=== PATIENT | male | born 1955 | race Caucasian/White ===

== ENCOUNTER 2019-09-20 07:26 | Observation (INO) | payer MEDICARE, MEDICAID ==
[2019-09-17 10:31] VITALS: BMI 32.4
[2019-09-20 09:05] LABS: #Basophils 0.1 thou/uL (0.0-0.2); #Eosinphils 0.3 thou/uL (0.0-0.7); #Lymphocytes 2.9 thou/uL (1.20-3.40); #Monocytes 0.7 thou/uL (0.11-0.59); #Neutrophils 11.7 thou/uL (1.40-6.50); %Basophils 0.6 % (0.0-1.0); %Eosinophils 1.9 % (0.0-10.0); %Lymphocytes 18.5 % (21.0-51.0); %Monocytes 4.1 % (0.0-10.0); %Neutrophils 74.8 % (42.0-75.0); Mean Corpuscular HGB CONC 32.9 g/dL (32.0-36.0); Mean Corpuscular Hemoglobin 31.2 pg (27.0-31.0); Mean Corpuscular Volume 94.9 fL (78.0-98.0); Mean Platelet Volume 6.1 fL (7.4-10.4); Platelet Count 408 thou/uL (130-400); RBC Distribution Width 13.1 % (11.5-14.5); Red Blood Cell (RBC) Count 5.45 mill/uL (4.70-6.10); White Blood Cell (WBC) Count 15.7 thou/uL (4.8-10.8)
[2019-09-20] MEDS ORDERED: Levofloxacin 500 mg/D5W 100 ml Premix Bag ONE (09:14)
[2019-09-20] MEDS ORDERED: Clindamycin/D5W 900 mg/50 ml Premix Bag ONE (09:15)
[2019-09-20 09:23] LABS: Anion Gap 13 mmol/L (10-20); BUN (Urea Nitrogen) 16 mg/dL (8.4-25.7); Calc. Creatinine Clearance 109 mL/min (70-130); Calcium 9.7 mg/dL (7.8-10.44); Carbon Dioxide 27 mmol/L (23-31); Chloride 103 mmol/L (98-107); Estimated GFR-MDRD 69; Glucose 155 mg/dL (80-115); Potassium 4.6 mmol/L (3.5-5.1); Sodium 138 mmol/L (136-145)
[2019-09-20] MEDS ORDERED: Ondansetron PF 4 MG/2 ML Vial ONE (09:37)
[2019-09-20] MEDS ORDERED: Rocuronium Bromide 10 MG/ML (10ML VIAL) ONE (09:37)
[2019-09-20] MEDS ORDERED: Lidocaine 1% PF 5 ML VIAL ONE (09:37)
[2019-09-20] MEDS ORDERED: PROPOFOL 200 MG/20 ML VIAL ONE (09:37)
[2019-09-20] MEDS ORDERED: Ketorolac Tromethamine 30 MG/ML VIAL ONE (09:37)
[2019-09-20] MEDS ORDERED: Dexamethasone 20 MG/5 ML VIAL ONE (09:37)
[2019-09-20] MEDS ORDERED: Glycopyrrolate 0.2 MG/ML 5 ML SYRINGE ONE (09:37)
[2019-09-20] MEDS ORDERED: Labetalol HCl 100 MG/20 ML VIAL ONE (09:37)
[2019-09-20] MEDS ORDERED: Fentanyl 100 MCG/2 ML VIAL ONE ×2 (10:34→12:28)
[2019-09-20] MEDS ORDERED: Midazolam HCl 2 mg/2 ml Vial ONE (10:34)
[2019-09-20] MEDS ORDERED: Promethazine HCl 25 MG/ML VIAL SLOW IVP PRN (11:29)
[2019-09-20] MEDS ORDERED: Ondansetron HCl/PF 4 MG/2 ML Vial IVP PRN (11:29)
[2019-09-20] MEDS ORDERED: Promethazine HCl 25 MG/ML VIAL IM PRN ×2 (11:29→13:04)
--- NOTE | 2019-09-20 12:41 | OP ---
DATE OF PROCEDURE: 09/20/2019 RECEPTION MANAGER: Kindra Ledezma PA-C. PROCEDURE PERFORMED: L1 through L4 decompressive laminectomy. DESCRIPTION OF PROCEDURE: The patient was brought to the operating room and intubated. He was rolled in a prone position on gel-filled chest rolls. An incision was made exposing L1 through L4 and the level was confirmed by x-ray. We performed complete L4, complete L3, complete L2, and inferior L1 laminectomies, completely decompressing the neural elements. The degree of stenosis was quite profound from the significant bony overgrowth throughout. A complete decompression was achieved. The wound was then extensively irrigated and MAC hemostasis was secured. Vancomycin powder was applied and the wound was closed in anatomic layers. Job ID: [id number]
[2019-09-20] MEDS ORDERED: Mag-Al 1200 mg/1200 mg/30 ML UDCUP PO PRN (13:04)
[2019-09-20] MEDS ORDERED: Milk Of Magnesia 30 ML UDCUP PO PRN (13:04)
[2019-09-20] MEDS ORDERED: Promethazine HCl 12.5 MG SUPP PR PRN (13:04)
[2019-09-20] MEDS ORDERED: Morphine 2 MG/ML SYRINGE SLOW IVP PRN (13:04)
[2019-09-20] MEDS ORDERED: diphenhydrAMINE 25 MG CAP PO PRN (13:04)
[2019-09-20] MEDS ORDERED: Promethazine 25 MG TAB PO PRN (13:04)
[2019-09-20] MEDS ORDERED: diphenhydrAMINE 50 MG/ML VIAL IVP PRN (13:04)
[2019-09-20] MEDS ORDERED: traMADol HCl 50 MG TAB PO PRN ×2 (13:04)
[2019-09-20] MEDS ORDERED: Morphine 4 MG/ML VIAL SLOW IVP PRN (13:04)
[2019-09-20] MEDS ORDERED: HYDROcodone/Acetaminophen 10/325 mg Tablet PO PRN (13:04)
[2019-09-20] MEDS ORDERED: Ondansetron PF 4 MG/2 ML Vial IM PRN (13:06)
[2019-09-20] MEDS: Clindamycin/D5W 900 MG in Premix Bag 1 BAG IVPB SCH (19:18)
[2019-09-20] MEDS: Sodium Chloride 0.9% 1,000 ML IV SCH (19:18)
[2019-09-20] MEDS: tiZANidine HCl 4 MG TAB PO PRN (23:06)
[2019-09-21] MEDS: Clindamycin/D5W 900 MG in Premix Bag 1 BAG IVPB SCH ×3 (02:48→17:21)
[2019-09-21] MEDS: HYDROcodone/Acetaminophen 10/325 mg Tablet PO PRN ×4 (02:49→20:01)
[2019-09-21] MEDS: Sodium Chloride 0.9% 1,000 ML IV SCH ×2 (02:55→16:32)
[2019-09-21] MEDS: Tamsulosin HCl 0.4 MG CAP PO SCH (05:16)
--- NOTE | 2019-09-21 06:24 | PRG ---
DATE OF SERVICE: 09/21/2019 SUBJECTIVE: The patient is now postoperative day 1, status post L1-L4 laminectomy for lumbar stenosis. Following the surgery, he was transitioned to the Med/Surg floor, where his pain has been well-controlled with p.o. medications, he is tolerating a regular diet, and he is voiding appropriately. He did have a ANN MARIE drain placed intraoperatively and had 130 mL out overnight. OBJECTIVE: VITAL SIGNS: His vital signs are stable and he has been afebrile. GENERAL: The patient is sitting up, awake, alert, in no acute distress. EXTREMITIES: He has free active range of motion of all extremities. No focal motor weakness. IMPRESSION AND PLAN: At this point, the patient is doing quite well since his surgery, he does have a slightly high ANN MARIE output and we will leave the ANN MARIE drain in place another day. Anticipate if it turns downward that it could be removed tomorrow and possible discharge home tomorrow. Job ID: [id number]
[2019-09-21] MEDS: Furosemide 40 MG TAB PO SCH (08:59)
[2019-09-21] MEDS: Hydrochlorothiazide 25 MG TAB PO SCH (08:59)
[2019-09-21] MEDS: tiZANidine HCl 4 MG TAB PO PRN ×2 (09:03→20:01)
--- NOTE | 2019-09-21 11:34 | EKG ---
Test Reason : PREOP Blood Pressure : / mmHG Vent. Rate : 077 BPM Atrial Rate : 077 BPM P-R Int : 190 ms QRS Dur : 080 ms QT Int : 396 ms P-R-T Axes : 028 076 027 degrees QTc Int : 448 ms Normal sinus rhythm Normal ECG No previous ECGs available Confirmed by RAYMOND ZHAO, DR. Crockett ([id number]) on 09/21/2019 11:34:36 AM Referred By: MONICA Confirmed By:DR. Keira ANDRADE MD
[2019-09-22] MEDS: Clindamycin/D5W 900 MG in Premix Bag 1 BAG IVPB SCH ×2 (01:18→08:59)
[2019-09-22] MEDS: HYDROcodone/Acetaminophen 10/325 mg Tablet PO PRN ×2 (01:19→08:59)
[2019-09-22] MEDS: Tamsulosin HCl 0.4 MG CAP PO SCH (06:03)
[2019-09-22] MEDS: Sodium Chloride 0.9% 1,000 ML IV SCH (07:22)
[2019-09-22 08:09] VITALS: BP 130/87; TEMP 98
[2019-09-22] MEDS: Furosemide 40 MG TAB PO SCH (08:59)
[2019-09-22] MEDS: Hydrochlorothiazide 25 MG TAB PO SCH (08:59)
--- NOTE | 2019-09-22 15:25 | DIS ---
DATE OF ADMISSION: 09/20/2019 DATE OF DISCHARGE: 09/22/2019 The patient is a 63-year-old male, who was recently evaluated in our office for low back pain and progressive neurogenic claudication. He was found to have significant stenosis from L1 through L4 on MRI. The patient underwent L1 through L4 laminectomy on 09/20/2019. Following the surgery, he was transitioned to the Med/Surg floor, where his pain has been well-controlled with p.o. medications, he is tolerating regular diet, and he is voiding appropriately. ANN MARIE output has trended down over the last 2 days and was only 70 mL out over postoperative night #2. We will plan to dismiss the patient to home and remove the ANN MARIE drain prior to discharge. I have discussed home care and precautions and will follow up with the patient in 2 weeks. [place] should be removed in 2 weeks. He has been provided with scripts for [place] and Zanaflex. I have checked [employer] prior to discharge and there were no script discrepancies. Job ID: [id number]
== END 2019-09-22 11:07 | disposition home or self-care (01) ==
LOC: SDC 07:26 → SURG A 14:16
PROVIDERS: ADMIT Neurological Surgery; ATTEND Neurological Surgery
PROC: 01NB0ZZ Release Lumbar Nerve, Open Approach (ICD-10-PCS; principal; 2019-09-20)
DX: M48.062 Spinal stenosis, lumbar region with neurogenic claudication (principal); I10 Essential (primary) hypertension; F17.200 Nicotine dependence, unspecified, uncomplicated; Z79.2 Long term (current) use of antibiotics; Z79.891 Long term (current) use of opiate analgesic; Z79.899 Other long term (current) drug therapy; Z88.0 Allergy status to penicillin; Z88.1 Allergy status to other antibiotic agents; Z88.2 Allergy status to sulfonamides; Z88.5 Allergy status to narcotic agent; Z91.048 Other nonmedicinal substance allergy status
CPT/HCPCS: 36415; 76000; 80048; 85025; 93005; 93010; 96365; 96366; 96376; G0378; J1100; J1885; J1956; J2001; J2250; J2405; J2704; J3010; J3370; J3490; J7620

== ENCOUNTER 2022-05-10 09:57 | Outpatient (CLI) | payer OTHER, MEDICAID | END 2022-05-10 09:58 | disposition home or self-care (01) | LOC: TBSIIMAG 09:57 | PROVIDERS: ATTEND Neurological Surgery | DX: M51.25 Other intervertebral disc displacement, thoracolumbar region (principal); M51.04 Intervertebral disc disorders with myelopathy, thoracic region; G95.89 Other specified diseases of spinal cord; M51.35 Other intervertebral disc degeneration, thoracolumbar region | CPT/HCPCS: 72146 ==

== ENCOUNTER 2022-07-22 06:55 | Inpatient (IN) | payer OTHER, MEDICAID ==
[2022-07-19 10:27] VITALS: BMI 31.6
[2022-07-22 08:43] LABS: #Eosinphils 0.3 thou/uL (0.0-0.7); #Monocytes 0.6 thou/uL (0.11-0.59); %Basophils 0.3 % (0.0-1.0); %Eosinophils 3.2 % (0.0-10.0); %Lymphocytes 27.3 % (21.0-51.0); %Monocytes 5.5 % (0.0-10.0); %Neutrophils 63.8 % (42.0-75.0); Hemoglobin 16.3 g/dL (14.0-18.0); Mean Corpuscular Hemoglobin 31.9 pg (27.0-31.0); Mean Corpuscular Volume 96.5 fl (78.0-98.0); Mean Platelet Volume 6.8 fL (7.4-10.4); Platelet Count 236 10x3/uL (130-400); Red Blood Cell (RBC) Count 5.12 mill/uL (4.70-6.10)
[2022-07-22 09:03] LABS: Anion Gap 14 mmol/L (10-20); BUN (Urea Nitrogen) 15 mg/dL (8.4-25.7); Calc. Creatinine Clearance 91 mL/min (70-130); Calcium 9.5 mg/dL (7.8-10.44); Carbon Dioxide 22 mmol/L (23-31); Chloride 105 mmol/L (98-107); Estimated GFR 66; Glucose 128 mg/dL (80-115); Potassium 4.2 mmol/L (3.5-5.1); Sodium 137 mmol/L (136-145)
[2022-07-22] MEDS ORDERED: fentaNYL PF 100 MCG/2 ML SYRINGE ONE (09:48)
[2022-07-22] MEDS ORDERED: Levofloxacin 500 mg/D5W 100 ml Premix Bag ONE (09:55)
[2022-07-22] MEDS ORDERED: Clindamycin/D5W 900 mg/50 ml Premix Bag ONE (09:56)
[2022-07-22] MEDS ORDERED: Ondansetron PF 4 MG/2 ML Vial ONE (10:05)
[2022-07-22] MEDS ORDERED: Lidocaine 1% PF 5 ML VIAL ONE (10:05)
[2022-07-22] MEDS ORDERED: Rocuronium Bromide 10 MG/ML (10ML VIAL) ONE (10:05)
[2022-07-22] MEDS ORDERED: PROPOFOL 200 MG/20 ML VIAL ONE (10:05)
[2022-07-22] MEDS ORDERED: NEOSTIGMINE 3 MG/3 ML SYR 3 MG/3 ML SYRINGE ONE (10:05)
[2022-07-22] MEDS ORDERED: Glycopyrrolate 0.2 MG/ML 5 ML SYRINGE ONE (10:05)
[2022-07-22] MEDS ORDERED: Succinylcholine Chloride 100 MG/5 ML SYRINGE FS ONE (10:05)
[2022-07-22] MEDS ORDERED: Dexamethasone 20 MG/5 ML VIAL ONE (10:05)
[2022-07-22] MEDS ORDERED: Vancomycin 1 GM VIAL ONE (10:22)
[2022-07-22] MEDS ORDERED: Milk Of Magnesia 30 ML UDCUP PO PRN (11:36)
[2022-07-22] MEDS ORDERED: Promethazine 25 MG TAB PO PRN (11:36)
[2022-07-22] MEDS ORDERED: HYDROcodone/Acetaminophen 7.5/325 mg Tablet PO PRN (11:36)
[2022-07-22] MEDS ORDERED: Mag-Al 1200 mg/1200 mg/30 ML UDCUP PO PRN (11:36)
[2022-07-22] MEDS ORDERED: Cyclobenzaprine 10 MG TAB PO PRN (11:36)
[2022-07-22] MEDS ORDERED: diphenhydrAMINE 25 MG CAP PO PRN (11:36)
[2022-07-22] MEDS ORDERED: Morphine 2 MG/ML VIAL SLOW IVP PRN (11:36)
[2022-07-22] MEDS ORDERED: Ondansetron PF 4 MG/2 ML Vial IVP PRN (11:36)
[2022-07-22] MEDS ORDERED: Dextrose 50% Abboject 50 ML SYRINGE SLOW IVP PRN (11:38)
[2022-07-22] MEDS ORDERED: Dextrose 5% in Water 1,000 ML IV PRN (11:38)
[2022-07-22] MEDS ORDERED: HumaLOG 300 UNITS/3 ML VIAL SC PRN (11:38)
[2022-07-22] MEDS ORDERED: HYDROmorphone 0.5 MG/0.5 ML SYRINGE ONE ×3 (12:17→15:32)
[2022-07-22] MEDS ORDERED: Fentanyl 100 MCG/2 ML VIAL ONE ×2 (14:17→16:16)
[2022-07-22] MEDS ORDERED: Ondansetron HCl/PF 4 MG/2 ML Vial IVP PRN (17:45)
[2022-07-22] MEDS ORDERED: Promethazine HCl 25 MG/ML VIAL IM/IV PRN (17:45)
[2022-07-22] MEDS ORDERED: HYDROmorphone 2 MG/ML VIAL SLOW IVP PRN (17:45)
[2022-07-22] MEDS: traMADol HCl 50 MG TAB PO PRN (20:15)
[2022-07-22] MEDS: Sodium Chloride 0.9% 1,000 ML IV SCH (20:16)
[2022-07-22] MEDS: Clindamycin/D5W 900 MG in Premix Bag 1 BAG IVPB SCH (20:16)
[2022-07-22] MEDS: HYDROcodone/Acetaminophen 7.5/325 mg Tablet PO PRN (23:24)
[2022-07-23] MEDS: Sodium Chloride 0.9% 1,000 ML IV SCH ×2 (01:35→14:15)
[2022-07-23] MEDS: Clindamycin/D5W 900 MG in Premix Bag 1 BAG IVPB SCH ×3 (01:38→17:37)
[2022-07-23] MEDS: traMADol HCl 50 MG TAB PO PRN (05:47)
[2022-07-23] MEDS: Tamsulosin HCl 0.4 MG CAP PO SCH (05:50)
[2022-07-23] MEDS: Lisinopril 10 MG TAB PO SCH (09:20)
[2022-07-23] MEDS: HYDROcodone/Acetaminophen 7.5/325 mg Tablet PO PRN ×2 (12:04→17:37)
[2022-07-23] MEDS ORDERED: Atorvastatin Calcium 10 MG TAB PO SCH (21:00)
[2022-07-24] MEDS: Clindamycin/D5W 900 MG in Premix Bag 1 BAG IVPB SCH (01:57)
[2022-07-24] MEDS: Sodium Chloride 0.9% 1,000 ML IV SCH (03:51)
[2022-07-24] MEDS: Tamsulosin HCl 0.4 MG CAP PO SCH (05:01)
[2022-07-24] MEDS: Lisinopril 10 MG TAB PO SCH (07:33)
[2022-07-24 08:48] VITALS: BP 146/88; TEMP 98.1
== END 2022-07-24 10:30 | disposition home or self-care (01) | DRG 517 ==
LOC: SDC 06:55 → SURG A 18:36 → OBSVTOIN 07-23 06:21
PROVIDERS: ADMIT Neurological Surgery; ATTEND Neurological Surgery
PROC: 01N80ZZ Release Thoracic Nerve, Open Approach (ICD-10-PCS; principal; 2022-07-22)
DX: M48.04 Spinal stenosis, thoracic region (principal); M48.062 Spinal stenosis, lumbar region with neurogenic claudication; E11.9 Type 2 diabetes mellitus without complications; I10 Essential (primary) hypertension; E78.5 Hyperlipidemia, unspecified; M48.05 Spinal stenosis, thoracolumbar region; Z91.018 Allergy to other foods; Z88.8 Allergy status to other drugs, medicaments and biological substances; Z88.5 Allergy status to narcotic agent; Z88.0 Allergy status to penicillin; Z79.899 Other long term (current) drug therapy; Z88.2 Allergy status to sulfonamides
CPT/HCPCS: 36416; 80048; 85025; 93005; 93010; 96365; 96376; G0378; J1100; J1170; J1956; J2405; J2704; J3010; J3370; J3490; J7050